=== PATIENT | female | born 1930 | race Caucasian/White ===

== ENCOUNTER 2017-06-15 21:54 | Emergency (ER) | payer MEDICARE ==
[2017-06-15 22:13] LABS: Hemoglobin 12.9 gm/dL (12.5-16.0); Mean Cell Volume 89.4 fl (78-100); Mean Corpuscular Hemoglobin 29.6 pg (27-31); Mean Corpuscular Hgb Conc 33.1 g/dl (32-36); Mean Platelet Volume 10.2 fl (6.0-9.5); Neutrophil # 4.8 K/mm3 (1.3-6.0); Neutrophil % 47.7 % (42-75.0); Platelet Count 273 K/mm3 (150-450); Red Blood Count 4.36 M/mm3 (4.2-5.4); Red Cell Distribution Width 14.9 % (11.5-14.0)
[2017-06-15 22:27] LABS: Albumin * 3.1 gm/dl (3.4-5.0); BUN/Creatinine Ratio 18.2 (9.0-21.6); Bilirubin, Total 0.5 mg/dL (0.0-1.1); Ca. Corrected For Albumin 9.1 mg/dL (8.4-10.2); Calcium * 8.7 mg/dL (7.9-10.9); Carbon Dioxide 31.9 mmol/L (24-32.6); Potassium 2.9 mmol/L (3.4-4.6); Total Protein 6.2 gm/dL (6.2-8.2)
--- OUTSIDE RECORDS SUMMARY | 2017-06-15 22:28 | XMS REPORT | Clinical Summary ---
:1930 Author Organization [facility] [place] [address] Care Team Providers Name Role Phone Unavailable Primary Care Provider Unavailable Source Comments This disclosure is being made pursuant to the [email or web address] program and maynot contain all information available regarding this patient.[facility] Allergies Not on File Current Medications Be aware that medications may not be up to date as of this document. Alwaysverify current medications with the patient. Not on file Active Problems Not on file Immunizations Name Dates Previously Given Next Due Influenza Split 11/16/2009,08/27/2008 Social History Tobacco Use Types Packs/Day Years Used Date Never Smoker Sex Assigned at Date Recorded Not on file Last Filed Vital Signs Vital Sign Reading Time Taken Blood Pressure 138/60 09/10/2012 10:16 AM CDT Pulse 76 09/10/2012 10:16 AM CDT Temperature 36.9 C (98.4 F) 09/10/2012 10:16 AM CDT Respiratory Rate 18 09/10/2012 10:16 AM CDT Oxygen Saturation - - Inhaled Oxygen Concentration - - Weight 102.1 kg (225 lb) 09/10/2012 10:16 AM CDT Height 170.2 cm (5' 7") 09/10/2012 10:16 AM CDT Body Mass Index 35.24 09/10/2012 10:16 AM CDT Plan of Treatment Health Maintenance Due Date Last Done Comments Tetanus/Pertussis (1 - Tdap) 1949 Well Adult Visit 1978 Zoster Vaccine 60+ 1988 Bone Density 1993 Pneumococcal Low/Medium Risk 65+ (1 of 2 - 1993 PCV13) INFLUENZA IMMUNIZATION (#1) 2017 11/16/2009, 08/27/2008 Results Not on filefrom Last 3 Months
[2017-06-15] MEDS ORDERED: POTASSIUM CHLORIDE 20 MEQ TABLET.SA ONE (23:22)
[2017-06-15] MEDS: POTASSIUM CHLORIDE 20 MEQ TABLET.SA PO ONE (23:25)
[2017-06-16 00:03] LABS: Urine Bilirubin Negative (NEGATIVE); Urine Ketone Negative (NEGATIVE); Urine Nitrite Negative (NEGATIVE); Urine Protein Negative (NEGATIVE); Urine Urobilinogen Normal (NORMAL); Urine pH 7.5 pH (5.0-7.0)
--- NOTE | 2017-06-16 00:03 | ERNOTE ---
Back Pain ER HPI Date of Service: 06/15/17 Presenting Symptoms: injury/pain to back Time Seen by Provider: 06/15/17 22:15 Source: patient Immunizations: IMMUNIZATION HX Immunizations Up to Date Yes History of Influenza Vaccine Yes Hx Pneumococcal Vaccination Yes Allergies/Adverse Reactions: Allergies cephalexin Allergy (Verified 06/15/17 22:05) lactose Allergy (Verified 06/15/17 22:05) lidocaine Allergy (Verified 06/15/17 22:05) Penicillins Allergy (Verified 06/15/17 22:05) Sulfa (Sulfonamide Antibiotics) Allergy (Verified 06/15/17 22:05) Home Medications: HOME MEDICATIONS Alendronate Sodium [Fosamax] 70 mg PO 06/15/17 [Last Taken Unknown] Allopurinol [Zyloprim (Allopurinol)] 200 mg PO HS 06/15/17 [Last Taken Unknown] Calcium Carbonate 600 mg PO BID 06/15/17 [Last Taken Unknown] Cyclosporine [Restasis] 1 each OP DAILY 06/15/17 [Last Taken Unknown] Furosemide [Lasix] 40 mg PO DAILY 06/15/17 [Last Taken Unknown] Grape Seed Extract [Grape Seed] 25 mg PO BID 06/15/17 [Last Taken Unknown] Levothyroxine Sodium [Synthroid] 25 mcg PO DAILY 06/15/17 [Last Taken Unknown] Metoprolol Succinate [Toprol Xl] 25 mg PO DAILY 06/15/17 [Last Taken Unknown] Mirabegron [Myrbetriq] 25 mg PO DAILY 06/15/17 [Last Taken Unknown] Multivitamin,Therapeutic [Thera-Tabs] 1 each PO DAILY 06/15/17 [Last Taken Unknown] PARoxetine HCL [Paxil] 60 mg PO DAILY 06/15/17 [Last Taken Unknown] Rivaroxaban [Xarelto] 15 mg PO DAILY 06/15/17 [Last Taken Unknown] Tiotropium [place] [Spiriva] 1 cap IH DAILY 06/15/17 [Last Taken Unknown] Umeclidinium [place] [Incruse Ellipta] 1 puff IH DAILY 06/15/17 [Last Taken Unknown] HYDROcodone/ACETAMINOPHEN [[place] 5-325] 1 each PO QID PRN #15 tablet 06/16/17 [ Last Taken Unknown] Potassium Chloride 20 meq PO BID #4 packet 06/16/17 [Last Taken Unknown] Narrative: 86 year old that has an acute onset of right lower back pain at 2030 hours. The pain is located at the right lower back just above the right pelvic ala.Any movement increases the pain, and nothing seems to improve. No medications were taken for the pain. She has had the pain intermittently for several months, but this is the worst episode. No reports of vomiting, fevers, chills, abdominal pain, vomiting or dysuria. Time (Timing): 00:40 Timing: Reports: constant Quality/Severity: Reports: severe Location of pain: Reports: lower back Activities at Onset: Reports: none Recent Injury?: Reports: no Possible Precipitating Factor: Reports: none Modifying Factors - (Improves): Reports: other - bromh still Modifying Factors - (Worsens): Reports: other - movement Review of Systems - Review of Systems Constitutional: Present: no symptoms reported EYE: Present: no symptoms reported ENT: Present: no symptoms reported Respiratory: Present: no symptoms reported Cardiology: Present: no symptoms reported Gastrointestinal/Abdominal: Present: no symptoms reported Genitourinary: Present: no symptoms reported Musculoskeletal: Present: See HPI Skin: Present: no symptoms reported Neurological: Present: no symptoms reported Endocrine: Present: no symptoms reported Hematologic/Lymphatic: Present: no symptoms reported - Patient's Past Medical History Patient History - Medical: Osteoporosis Patient History - Cardiac/Respiratory: Atrial Fibrillation, Asthma, CHF, COPD, CVA/Stroke, Deep Vein Thrombosis, Hypertension, Myocardial Infarction, Sleep Apnea Patient History - Cancer: No Hx of Cancer Patient History - Surgical Procedures: Cataracts, Cholecystectomy, Hysterectomy , Total Knee Replacement, T & A Patient History - Other: None LMP (females 10-50): Menopausal - Social History Living Situations: home Abuse History: No History of abuse Psych History: No pertinent hx Smoking Status: Former smoker Alcohol Use: rarely Drug Use: none - Immunizations Immunizations Up to Date: Yes Hx Pneumococcal Vaccination: Yes History of Influenza Vaccine: Yes Physical Exam - Physical Exam General Appearance: Present: mild distress Head Exam: Present: normal inspection Eye Exam: Normal inspection: bilateral Ears, Nose, Throat: Present: normal ENT inspection Neck: Present: normal inspection Respiratory: Present: no respiratory distress Cardiovascular/Chest: Present: regular rate, rhythm Gastrointestinal/Abdominal: Present: tenderness - mild to moderate on palpation ; no rebound Back Exam: Present: no CVA tenderness, other - Tenderness at the right lower back over the right ala on palpation in the area of the musculature. Extremity Exam: Present: normal inspection, other Neurological Exam: Present: alert, oriented Skin Exam: Present: normal color ED Progress - Results and Orders Patient's Lab Results:: I have reviewed the patient's lab results. - Vital Signs Patient's Vital Signs:: I have reviewed the patient's vital signs. Vital Signs: Vital Signs 06/15/17 06/15/17 21:55 22:52 Temperature 36.8 C Pulse Rate 75 77 Respiratory 18 18 Rate Blood Pressure 145/61 146/61 O2 Sat by Pulse 100 99 Oximetry - CT/Ultrasound CT/Ultrasound Narrative: Redundant colon with moderate fecal retention. 2 cm left adrenal nodule. RUQ abdominal wall hernia. - Progress/Reassessment Chief Complaint: Back Pain Progress:: Improved Progress Note-Subjective: 06/16/17 01:29 She will be transported to the [facility]. Hemodynamically stable while in the emergency department. 06/17/17 07:07 Departure Clinical Impression: Hypokalemia, Musculoskeletal back pain - Departure Disposition: Other home health Condition: Fair Instructions: Hypokalemia, Back Pain, Adult Print Language: Tuvaluan Additional Instructions: Have your potassium checked in two days. Medications will have to be give to you to control the pain. You should have a stool softener given or possibly a laxative since there was a large amount of stool on your x-ray. Prescriptions: HYDROcodone/ACETAMINOPHEN [[place] 5-325] 1 each PO QID PRN #15 tablet PRN Reason: Pain Potassium Chloride 20 meq PO BID #4 packet
[2017-06-16] MEDS ORDERED: HYDROcodone/ACETAMINOPHEN 1 EACH TABLET ONE (00:09)
[2017-06-16] MEDS: HYDROcodone/ACETAMINOPHEN 1 EACH TABLET PO ONE (00:10)
[2017-06-16 00:13] LABS: Urine Appearance Clear; Urine Bacteria 2+; Urine Blood 5 /ul (NEGATIVE); Urine Color Colorless; Urine RBC None Seen /hpf (0-5); Urine WBC TRACE /hpf (0-5)
[2017-06-16 02:45] VITALS: BP 128/49
== END 2017-06-16 01:58 | disposition home health service (06) ==
LOC: ER 21:54
DX: M54.9 Dorsalgia, unspecified (principal); E87.6 Hypokalemia; Z87.891 Personal history of nicotine dependence

== ENCOUNTER 2017-07-14 06:40 | Day surgery (SDC) | payer MEDICARE, BC ==
[~2017-07-14 06:40] MED LIST: CLINDAMYCIN PHOSPHATE 600 MG in DEXTROSE 5 % IN WATER 100 ML IV PRN; RINGER'S SOLUTION,LACTATED 1,000 ML IV PRN
[2017-07-14] MEDS ORDERED: RINGER'S SOLUTION,LACTATED 1,000 ML IV ONE (07:45)
[2017-07-14] MEDS ORDERED: BUPIVACAINE HCL 50 ML VIAL IJ ONE (08:05)
[2017-07-14] MEDS ORDERED: CLINDAMYCIN HCL 150 MG CAPSULE PO ONE (08:15)
[2017-07-14] MEDS ORDERED: oxyCODONE HCL/ACETAMINOPHEN 1 TAB TABLET PO PRN (09:42)
[2017-07-14 10:44] VITALS: BP 144/67
== END 2017-07-14 06:41 | disposition home or self-care (01) ==
LOC: AMB 06:40
PROVIDERS: ATTEND Student in an Organized Health Care Education/Training Program
PROC: 0Y6S0Z0 Detachment at Left 2nd Toe, Complete, Open Approach (ICD-10-PCS; principal; 2017-07-14 08:00)
DX: M86.8X7 Other osteomyelitis, ankle and foot (principal); L97.529 Non-pressure chronic ulcer of other part of left foot with unspecified severity; I10 Essential (primary) hypertension; I48.91 Unspecified atrial fibrillation; J45.909 Unspecified asthma, uncomplicated; M81.0 Age-related osteoporosis without current pathological fracture; Z68.32 Body mass index [BMI] 32.0-32.9, adult

== ENCOUNTER 2017-08-28 19:22 | Emergency (ER) | payer MEDICARE ==
[2017-08-28] MEDS ORDERED: NORMAL SALINE 1,000 ML IV ONE (19:25)
[2017-08-28 19:38] LABS: Hematocrit 41.1 % (37.0-47.0); Hemoglobin 13.2 gm/dL (12.5-16.0); Mean Cell Volume 89.9 fl (78-100); Mean Corpuscular Hemoglobin 28.9 pg (27-31); Mean Corpuscular Hgb Conc 32.1 g/dl (32-36); Mean Platelet Volume 9.7 fl (6.0-9.5); Neutrophil # 5.1 K/mm3 (1.3-6.0); Neutrophil % 51.1 % (42-75.0); Platelet Count 370 K/mm3 (150-450); Red Blood Count 4.57 M/mm3 (4.2-5.4); Red Cell Distribution Width 14.9 % (11.5-14.0); White Blood Count 9.9 K/mm3 (4.0-10.5)
[2017-08-28] MEDS ORDERED: LEVOFLOXACIN/D5W 750 MG/150 ML BAG IV ONE (20:08)
[2017-08-28 20:17] LABS: Albumin * 3.1 gm/dl (3.4-5.0); Anion Gap 12.3 mmol/L (6.8-13.8); BUN/Creatinine Ratio 18.9 (9.0-21.6); Bilirubin, Total 0.4 mg/dL (0.0-1.1); Ca. Corrected For Albumin 9.4 mg/dL (8.4-10.2); Carbon Dioxide 32.7 mmol/L (24-32.6)
[2017-08-28 20:18] LABS: Urine Bilirubin Negative (NEGATIVE); Urine Blood 25 /ul (NEGATIVE); Urine Ketone Negative (NEGATIVE); Urine Nitrite Negative (NEGATIVE); Urine Protein 15 mg/dL (NEGATIVE); Urine Urobilinogen Normal (NORMAL)
[2017-08-28 20:28] LABS: Urine Appearance Clear; Urine Color Pale Yellow
[2017-08-28 20:29] LABS: Urine Bacteria TRACE; Urine RBC 0-5 /hpf (0-5); Urine WBC 0-5 /hpf (0-5)
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
[2017-08-28 22:14] VITALS: BP 170/64
== END 2017-08-28 22:16 | disposition home or self-care (01) ==
LOC: ER 19:22
DX: I10 Essential (primary) hypertension (principal); M81.0 Age-related osteoporosis without current pathological fracture; I48.91 Unspecified atrial fibrillation; Z79.01 Long term (current) use of anticoagulants; I50.9 Heart failure, unspecified; J44.9 Chronic obstructive pulmonary disease, unspecified; Z86.73 Personal history of transient ischemic attack (TIA), and cerebral infarction without residual deficits; I25.2 Old myocardial infarction